=== PATIENT | male | born 1955 | race Hispanic/Latino ===

== ENCOUNTER 2024-05-05 17:42 | Emergency (ER) | payer OTHER ==
[~2024-05-05] VITALS: Ht 182.9 cm; Wt 122.5 kg
--- NOTE | 2024-05-05 17:54 | ERN ---
ED Note History of Present Illness Stated Complaint: NOSE BLEED Chief Complaint: Nosebleed Time Seen by MD: 17:45 Dictation: PATIENT IS A 69-YEAR-OLD MALE STATES HE WAS AT HOME WITH HIS WHEN HE WAS WALKING TO THE BATHROOM. STATES HE TRIPPED ON A CORD AND HIT THE WALL WITH HIS FACE IN HIS HEAD. NO BLOOD THINNERS NO LOC HE STATES HE HAS BEEN HAVING INTERMITTENT BLEEDING FROM THE LEFT SIDE OF HIS NOSE. NO LOC NO BLOOD THINNERS. HE IS ALSO COMPLAINING OF LATERAL POSTERIOR LEFT NECK PAIN. NO STEP-OFFS. NEUROVASCULAR IS INTACT MOVES ALL EXTREMITIES 5/5 BILATERALLY. NO TRAUMA ALERT CRITERIA. ALSO HAS A LARGE HEMATOMA TO THE RIGHT ORBITAL AREA SUPERIORLY. Allergies: Coded Allergies: No Known Drug Allergies (Unverified Allergy, Unknown, 05/05/24) Past Medical History Past Medical History: Diabetes-Type II, Hypertension Surgical History: None RN Note Reviewed/Agreed w/PFSH: Yes Review of System Dictation CONSTITUTIONAL: NEGATIVE EXCEPT FOR HPI HEAD/FACE: NEGATIVE EXCEPT FOR HPI RIGHT ORBITAL HEMATOMA/NASAL BONE PAIN EENT: NEGATIVE EXCEPT FOR HPI LEFT EPISTAXIS CLAMP IS IN PLACE FROM HOME. RESPIRATORY: NEGATIVE EXCEPT FOR HPI GASTROINTESTINAL/ABDOMINAL: NEGATIVE EXCEPT FOR HPI GENITOURINARY: NEGATIVE EXCEPT FOR HPI MUSCULOSKELETAL: NEGATIVE EXCEPT FOR HPI LEFT POSTERIOR LATERAL NECK PAIN NO MIDLINE SPINE INTEGUMENTARY: NEGATIVE EXCEPT FOR HPI NEUROLOGICAL/PSYCH: NEGATIVE EXCEPT FOR HPI HEMATOLOGIC/LYMPHATIC: NEGATIVE EXCEPT FOR HPI ALL SYSTEMS NEGATIVE, EXCEPT NOTED ABOVE. 13 POINT REVIEW OF SYSTEMS ASSESSED AND ALL NEGATIVE EXCEPT FOR ABOVE. Initial Vital Sign VS Vital Signs Date Time Temp Pulse Resp B/P (MAP) Pulse Ox O2 Delivery O2 Flow Rate FiO2 05/05/24 17:43 98.1 61 18 158/61 99 Room Air Physical Exam Dictation VITAL SIGNS REVIEWE MILD ACUTE DISTRESS, WELL DEVELOPED, NOURISHED. HEAD AND FACE: RIGHT SUPERIOR ORBITAL HEMATOMA. EOMS INTACT EYES: PERRL, PINK CONJUNCTIVAS, EYELID NO TRAUMA, ANTERIOR CHAMBER WITH ARCUS SENILIS. NO GARZA OR RACCOON SIGN EARS: PINNAS INTACT AND NO SIGNS OF TRAUMA OR ERYTHEMA EAR CANALS CLEAR AND NO DISCHARGE TM NO ERYTHEMA NO HEMOTYMPANUM NOSE: NO DISCHARGE, SMALL EPISTAXIS BLEED ANTERIORLY LEFT. MINIMAL BLEEDING CLAMP WAS REPLACED. OROPHARYNX: MOUTH NORMAL, TONGUE PINK, PHARYNX CLEAR,NO ERYTHEMA, TONSILS NO EXUDATES, NO ABSCESSES NOTED, MUCOUS MEMBRANE MOIST NECK: SUPPLE, NON-TENDER, NO THYROMEGALY, NO MASSES, NO JVD, NO BRUITS BREAST:DEFERRED CHEST:NO TENDERNESS, NO CREPITUS, NO PARADOXICAL MOVEMENT, NO RETRACTIONS LUNGS:CLEAR, WELL-VENTILATED, SYMMETRIC, NO RALES, NO WHEEZING, NO RHONCHI, NO STRIDOR, GOOD BREATH SOUNDS BILATERALLY HEART: REGULAR RATE, REGULAR RHYTHM, NO MURMUR, NO GALLOPS VASCULAR: NO PERIPHERAL EDEMA, ABDOMEN: SOFT, POSITIVE BOWEL SOUNDS, NONDISTENDED, NO GUARDING, NONTENDER, NO REBOUND, NO MASSES NO HEPATOMEGALY, NO SPLENOMEGALY, NO GARCIA'S SIGN, NO HERNIAS. RECTAL: DEFERRED GENITAL: DEFERRED NEUROLOGICAL: NORMAL SPEECH, MOTOR FUNCTION INTACT, SENSORY FUNCTION INTACT MUSCULOSKELETAL: LEFT POSTERIOR LATERAL NECK PAIN SPASM. NO MIDLINE SPINE PAIN OR STEP-OFFS. WE WILL APPLY CERVICAL COLLAR UNTIL CT IS PERFORMED. EXTREMITIES: NONTENDER, FULL RANGE OF MOTION SKIN: COLOR PINK, DRY, NO TURGOR, NO RASH, NO LACERATIONS, NO ABRASIONS, NO CONTUSIONS. LYMPHATIC: DEFERRED Results (Laboratory/Radiology) Laboratory/Radiology COMPARISON: None FINDINGS: Moderate right supraorbital hematoma. No evidence for orbital wall or zygomatic arch fracture. The globes are symmetrical in their appearance, and normal in attenuation. The optic nerves and muscles are normal in caliber. Nondisplaced left nasal bone fracture and nominal leftward deviation of the nasal bone. Cribriform plate and lupillo armando are intact. Nasal septum is midline. Mild right maxillary sinus mucosal thickening includes trace fluid. Remainder of the visible paranasal sinuses are clear. Middle and inferior nasal turbinates appear unremarkable. Ostiomeatal units are patent bilaterally. The visualized sella and suprasellar structures appear unremarkable. IMPRESSION: Nondisplaced left nasal bone fracture. Moderate right supraorbital hematoma without subjacent globe injury or orbital wall fracture. Acute on chronic mild right maxillary sinus disease. FINDINGS: Straightening of the normal lordosis may be related to overlying muscle spasm, underlying degenerative joint disease and/or patient positioning. Vertebral bodies are normal stature without evidence for compression deformity or fracture. No evidence for subluxation. Multilevel mild cervical spondylosis. The craniocervical junction appears normal. The atlantoaxial articulation is within normal limits. The dens is intact. The pre- and paravertebral soft tissues appear unremarkable. IMPRESSION: No evidence for fracture or subluxation. Labs Reviewed?: Yes ED Course ED Course Orders Procedure Category Date Status Time Ct Cervical Spine W/O CT 05/05/24 Resulted Contrast 17:47 Ct Maxillofacial W/O CT 05/05/24 Resulted Contrast 17:47 Oxymetazolone Hcl PHA 05/05/[address] (Afrin) 18:00 Apply Ice Pack To: CPOE 05/05/24 Transmitted (Er) 17:47 Acetaminophen 500mg PHA 05/05/24 Complete Tab (Tylenol 500mg T 18:00 *Nursing CPOE 05/05/24 Transmitted Communication: 17:47 Current Medications Medications (Trade) Dose Ordered Sig/Niya Route PRN Reason Start Time Stop Time Status Last Admin Dose Admin Acetaminophen (TYLenol 500MG TAB) 1,000 mg ONCE ONCE PO 05/05/24 18:00 05/05/24 18:01 DC 05/05/24 17:55 Oxymetazoline HCl (AFrin) 2 sprays ONCE EN 05/05/24 18:00 06/04/24 17:59 05/05/24 17:55 Vital Signs Date Time Temp Pulse Resp B/P (MAP) Pulse Ox O2 Delivery O2 Flow Rate FiO2 05/05/24 17:43 98.1 61 18 158/61 99 Room Air EIGHTEEN 30 PATIENT AND MADE AWARE OF CLINICAL FINDINGS TO INCLUDE NASAL BONE FRACTURE CERVICAL STRAIN AND FACIAL CONTUSION. I REITERATED HOW TO USE THE NASAL SPRAY THREE SPRAYS EACH SIDE AND LEAVE CLAMPED FOR ANOTHER HOUR. FOLLOW UP WITH HIS PRIMARY CARE DOCTOR TOMORROW FOR REFERRAL TO ENT. CERVICAL COLLAR REMOVED BY RIGGING FOREMAN, NEUROVASCULAR CMS INTACT TO ALL EXTREMITIES POST REMOVAL Medical Decision Making MDM MDM: DIFFERENTIAL DIAGNOSIS: CERVICAL SCREEN/FRACTURE SKULL FRACTURE/ORBITAL FRACTURE/FACIAL CONTUSION/FALL/EPISTAXIS RATIONALE: TESTS CONSIDERED AND ORDERED SECONDARY TO SHARED DECISION MAKING INCLUDE: CT PREVIOUS OUTSIDE RECORDS REVIEWED: OLD ER VISITS. RISK OF COMPLICATION AND/OR MORBIDITY OR MORTALITY OF PATIENT MANAGEMENT: NONE MEDICATIONS-PER MEDICATION RECONCILIATION NEED FOR HOSPITALIZATION: PATIENT DOES NOT MEET CRITERIA FOR HOSPITALIZATION. NO NEED FOR EMERGENCY MAJOR/MINOR SURGERY: NO THERE ARE NO SOCIAL CONCERNS WITH THIS PATIENT. PRESCRIPTION DRUG MANAGEMENT NONE PRESCRIPTIONS WILL INCLUDE SYMPTOMATIC CARE PATIENT'S PRIOR EXTERNAL MEDICAL RECORDS FROM OTHER ER VISITS WERE REVIEWED BY ME INDICATED. PRIOR TESTING AND RESULTS FROM PREVIOUS VISITS WERE REVIEWED. PRIOR TESTS WERE TAKEN INTO ACCOUNT WITH MEDICAL DECISION MAKING AND RESOURCE UTILIZATION, INDEPENDENT HISTORIAN/HISTORIANS WERE USED TO OBTAIN COMPLETE MEDICAL HISTORY. I INDEPENDENTLY INTERPRETED THE TEST THAT WERE PERFORMED, RESULTS WERE REVIEWED BY ME AND CONSIDERED FINDINGS ON RADIOLOGY IF ORDERED. MEDICAL MANAGEMENT AND EXAMINATION INTERPRETATION DISCUSSIONS WERE HAD BY ME WITH OTHER QUALIFIED HEALTHCARE PROFESSIONALS INDICATED FOR THE PATIENT'S CARE. DX & DISP Disposition: Discharge Departure Impression: Primary Impression: Nasal bone fracture Additional Impressions: Epistaxis, Hematoma of right orbit, Acute cervical myofascial strain, Fall Condition: Stable Additional Instructions: FOLLOW-UP WITH PRIMARY CARE PROVIDER IN 1 TO 2 DAYS. TAKE MEDICATIONS DIRECTED HERE IN THE EMERGENCY ROOM. OKAY TO CONTINUE HOME MEDICATIONS UNLESS OTHERWISE DISCUSSED DURING YOUR VISIT IN THE EMERGENCY ROOM TODAY. RETURN TO YOUR NEAREST EMERGENCY ROOM IF SYMPTOMS WORSEN OR IF THERE IS NO IMPROVEMENT. CALL 911 IF YOU NEED IMMEDIATE ASSISTANCE. TAKE TYLENOL OR MOTRIN [id number] NEEDED AND IF NO CONTRAINDICATIONS ARE PRESENT. INCREASE ORAL HYDRATION. A WOUND CULTURE OR URINE CULTURE WAS ORDERED HERE IN THE EMERGENCY ROOM DEPARTMENT PLEASE FOLLOW-UP WITH PRIMARY CARE PROVIDER AND ADVISE THEM TO GET REPEAT PORTS FROM OUR FACILITY. IF YOU HAD ANY CHAU WRAP/SPLINTS THAT WERE APPLIED HERE, PLEASE DO NOT REMOVE THEM UNTIL YOU SEE YOUR PRIMARY CARE OR SPECIALTY. COOL COMPRESSES TO NOSE AND SWELLING TO RIGHT EYE FOUR TO 5 TIMES A DAY. USE THREE SPRAYS OF AFRIN NASAL SPRAY AFTER REMOVING THE NASAL CLAMP IN 1 HOUR AND THEN REPLACE CLAMP. REPEAT THIS TWICE A DAY FOR THE NEXT THREE DAYS EXCEPT FOR THE CLAMP. SEE YOUR PRIMARY CARE DOCTOR TOMORROW AT THE [facility] FOR ENT REFERRAL. Time of Disposition: 18:34 I have reviewed the case, and I agree with, Diagnosis and Plan BETTYE BLAKE NP May 05, 2024 17:53
[2024-05-05] MEDS: OXYmetazolone HCL SPRAY 15 ML BOTTLE EN SCH (17:55)
[2024-05-05] MEDS: acetaMINOPHEN 500 MG TABLET PO ONE (17:55)
--- NOTE | 2024-05-05 18:16 | HMCIMG ---
CT FACIAL BONES WITHOUT CONTRAST INDICATION: Right orbital hematoma and nasal pain after fall TECHNIQUE: 3D helical CT acquisition through the facial bones with coronal and sagittal reformatting. CT was performed with one or more of the following dose reduction techniques: Automated exposure control, adjustment of the mA and/or kV according to patient size, or use of iterative reconstruction technique. COMPARISON: None FINDINGS: Moderate right supraorbital hematoma. No evidence for orbital wall or zygomatic arch fracture. The globes are symmetrical in their appearance, and normal in attenuation. The optic nerves and muscles are normal in caliber. Nondisplaced left nasal bone fracture and nominal leftward deviation of the nasal bone. Cribriform plate and lupillo armando are intact. Nasal septum is midline. Mild right maxillary sinus mucosal thickening includes trace fluid. Remainder of the visible paranasal sinuses are clear. Middle and inferior nasal turbinates appear unremarkable. Ostiomeatal units are patent bilaterally. The visualized sella and suprasellar structures appear unremarkable. IMPRESSION: Nondisplaced left nasal bone fracture. Moderate right supraorbital hematoma without subjacent globe injury or orbital wall fracture. Acute on chronic mild right maxillary sinus disease.
--- NOTE | 2024-05-05 18:17 | HMCIMG ---
CT CERVICAL SPINE WITHOUT CONTRAST INDICATION: Left lateral posterior neck pain after fall TECHNIQUE: Contiguous axial computed tomography imaging using 2 mm slice thickness through the cervical spine. Reconstructions in the sagittal and coronal planes. CT was performed with one or more of the following dose reduction techniques: Automated exposure control, adjustment of the mA and/or kV according to patient size, or use of iterative reconstruction technique. COMPARISON: None. FINDINGS: Straightening of the normal lordosis may be related to overlying muscle spasm, underlying degenerative joint disease and/or patient positioning. Vertebral bodies are normal stature without evidence for compression deformity or fracture. No evidence for subluxation. Multilevel mild cervical spondylosis. The craniocervical junction appears normal. The atlantoaxial articulation is within normal limits. The dens is intact. The pre- and paravertebral soft tissues appear unremarkable. IMPRESSION: No evidence for fracture or subluxation.
[2024-05-05 18:42] VITALS: BP 158/61; PULSE 65; RESP 18; TEMP 98.1; O2SAT 99
== END 2024-05-05 18:43 | disposition home or self-care (01) ==
LOC: EDH 17:42
DX: S02.2XXA Fracture of nasal bones, initial encounter for closed fracture (principal); S16.1XXA Strain of muscle, fascia and tendon at neck level, initial encounter; S00.83XA Contusion of other part of head, initial encounter; E11.9 Type 2 diabetes mellitus without complications; I10 Essential (primary) hypertension; J32.0 Chronic maxillary sinusitis; R04.0 Epistaxis; W01.0XXA Fall on same level from slipping, tripping and stumbling without subsequent striking against object, initial encounter; Y93.89 Activity, other specified; Y92.89 Other specified places as the place of occurrence of the external cause; Y99.8 Other external cause status
CPT/HCPCS: 70486; 72125; 99284